=== PATIENT | female | born 1970 | race Two or more races ===

== ENCOUNTER 2018-10-13 06:05 | Observation (INO) | payer OTHER ==
[~2018-10-13] VITALS: Ht 149.9 cm; Wt 52.6 kg
[2018-10-13 06:28] VITALS: BP 167/95
[2018-10-13 10:52] VITALS: BP 128/81
[2018-10-13 17:00] VITALS: BP 134/86
[2018-10-13 19:55] VITALS: BP 138/86
[2018-10-14 05:55] VITALS: BP 124/73
[2018-10-14 10:04] VITALS: BP 125/76
[2018-10-14 10:11] VITALS: BP 125/76
== END 2018-10-14 11:15 | disposition home or self-care (01) | DRG 404 ==
LOC: DS 06:05 → OR 07:30 → DS 07:30 → MU 10:45 → DS 10:46 → MU 20:57
PROVIDERS: ADMIT Surgery
PROC: 0GBG0ZZ Excision of Left Thyroid Gland Lobe, Open Approach (ICD-10-PCS; principal; 2018-10-13 07:30)
DX: E04.1 Nontoxic single thyroid nodule (principal); R13.10 Dysphagia, unspecified; I10 Essential (primary) hypertension; R73.03 Prediabetes
CPT/HCPCS: 82962; G0378; J0330; J0690; J2175; J2250; J2405; J2704; J3010; J3490; J7030